=== PATIENT | female | born 1995 | race Two or more races ===

== ENCOUNTER 2017-02-27 21:10 | Emergency (ER) | payer SELFPAY ==
[2017-02-27] MEDS ORDERED: TETRACAINE HCL 0.5% OPH SOLN 2 ML OS ONE (22:35)
[2017-02-27] MEDS ORDERED: TETRACAINE HCL 0.5% OPH SOLN 2 ML ONE (22:36)
[2017-02-27] MEDS ORDERED: POLYMYXIN B SULFATE/TMP OPH SOLN (10 ML/ER DISP) OS PRN (22:42)
--- NOTE | 2017-02-27 22:45 | ER Document Report ---
ED General - General Chief Complaint: Eye Pain Stated Complaint: LEFT EYE PAIN Time Seen by Provider: 02/27/17 22:04 Notes: Patient is a 21-year-old female who is Kyrgyz-speaking who presents with complaint of left eye pain. All history is obtained using our Kyrgyz speaking nurse, [place], as an per diem interpreter. Patient says that she woke up this morning and noticed that she had some pain in her left eye some redness and irritation. Symptoms have continued throughout the day and therefore she is presented to the [facility] for evaluation. She does not wear contacts. She does not wear glasses. She does not remember having a foreign body into her eye. She denies this ever happening before. No recent cold-like symptoms. No nasal congestion. No cough. No matting of the eye. No other complaints at this time. TRAVEL OUTSIDE OF THE [place] IN LAST 30 DAYS: No - Related Data Allergies/Adverse Reactions: No Known Allergies Allergy (Unverified 02/27/17 21:16) Past Medical History - Social History Smoking Status: Current Some Day Smoker Frequency of alcohol use: Social Drug Abuse: None Family History: Reviewed & Not Pertinent Patient has suicidal ideation: No Patient has homicidal ideation: No Renal/ Medical History: Denies: Hx Peritoneal Dialysis Review of Systems - Review of Systems Notes: My Normal Review Basic REVIEW OF SYSTEMS: CONSTITUTIONAL : Denies fever, chills, or sweats. Denies recent illness. EENT: Left eye pain. RESPIRATORY: Denies cough, cold, or chest congestion. Denies shortness of breath, difficulty breathing, or wheezing. MUSCULOSKELETAL: Denies neck or back pain or joint pain or swelling. SKIN: Denies rash or skin lesions. NEUROLOGICAL: Denies altered mental status or loss of consciousness. Denies headache. Denies weakness or paralysis or loss of use of either side. Denies problems with gait or speech. Denies sensory or motor loss. ALL OTHER SYSTEMS REVIEWED AND NEGATIVE. Physical Exam - Vital signs Vitals: Temp Pulse Resp BP Pulse Ox 97.9 F 75 20 124/71 99 02/27/17 21:16 02/27/17 21:16 02/27/17 21:16 02/27/17 21:16 02/27/17 21:16 - Notes Notes: General Appearance: Well nourished, alert, cooperative, no acute distress, no obvious discomfort. Vitals: reviewed, See vital signs table. Head: no swelling or tenderness to the head Eyes: PERRL, EOMI, right eye has normal conjunctival without any signs of irritation. Left eye has some erythematous conjunctiva. On fluorescein staining patient does have uptake with evidence of a corneal abrasion at the 4 o 'clock position at the border of the iris and the conjunctival. Pupils not cloudy appearing. No hyphema or hypopyon on exam. No pain with extraocular motion. Mouth: No decreasd moisture Skin: warm, dry, appropriate color, no rash Neuro: speech clear, oriented x 3, normal affect, responds appropriately to questions. Course - Re-evaluation Re-evalutation: 02/28/17 03:19 Patient has what appears to be corneal abrasion. She has been given Polytrim eyedrops. She is encouraged follow-up with cns for reevaluation on Wednesday. She is encouraged to return to ER immediately if she has redness or swelling to the eye, worsening redness despite use of eyedrops, or if she has any further concerns. Instructions were given to her using the per diem interpreter and nurse, [place]. Dictation of this chart was performed using voice recognition software; therefore, there may be some unintended grammatical errors. - Vital Signs Vital signs: Temp Pulse Resp BP Pulse Ox 98.0 F 58 L 16 115/72 99 02/27/17 22:57 02/27/17 22:57 02/27/17 22:57 02/27/17 22:57 02/27/17 22:57 Discharge - Discharge Clinical Impression: Corneal abrasion Qualifiers: Encounter type: initial encounter Laterality: left Qualified Code(s): S05.02XA - Injury of conjunctiva and corneal abrasion without foreign body, left eye, initial encounter Condition: Good Disposition: HOME, SELF-CARE Additional Instructions: You appear to have a corneal abrasion to your left eye. Please use the Polytrim eye drops as 1 drop every 3 hours for 7 days. Please follow up with the eye doctor, Dr. Fernandez, on Wednesday for reevaluation. Call the office to make an appointment. Please return to the ER if your eye becomes more red despite use of the eye drop. Referrals: ARIES FERNANDEZ MD [ACTIVE STAFF] - 03/01/17 Print Language: Kyrgyz
[2017-02-27 23:00] VITALS: BP 115/72
== END 2017-02-27 22:57 | disposition home or self-care (01) ==
LOC: ER 21:10
DX: S05.02XA Injury of conjunctiva and corneal abrasion without foreign body, left eye, initial encounter (principal); H57.12 Ocular pain, left eye; F17.200 Nicotine dependence, unspecified, uncomplicated; X58.XXXA Exposure to other specified factors, initial encounter
CPT/HCPCS: 99283; J3490

== ENCOUNTER 2018-04-30 17:09 | Emergency (ER) | payer SELFPAY ==
[2018-04-30 17:40] VITALS: BP 125/78
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
[2018-04-30] MEDS ORDERED: SILVER SULFADIAZINE 1% CREAM 25 GM TP ONE (17:59)
== END 2018-04-30 18:11 | disposition home or self-care (01) ==
LOC: ER 17:09
DX: T23.251A Burn of second degree of right palm, initial encounter (principal); X10.2XXA Contact with fats and cooking oils, initial encounter
CPT/HCPCS: 99283